=== PATIENT | female | born 1980 | race Caucasian/White ===

== ENCOUNTER 2017-03-04 17:57 | Inpatient (IN) | payer BC ==
[~2017-03-04] VITALS: Ht 165.1 cm; Wt 87.1 kg
[2017-03-04 18:36] LABS: HEMATOCRIT 40.7 % (36.0-46.0); MCHC 32.4 G/DL (30.0-36.0); MCV 89.5 FL (83-99); MEAN PLAT.VOLUME 10.3 uM^3 (9.5-12.4); PLATELET COUNT 340 K/uL (156-360); RBC DIS.WIDTH-SD 38.9 % (39-53); RED BLOOD COUNT 4.55 M/uL (3.80-5.20); WHITE BLOOD COUNT 14.2 K/uL (4.1-10.2)
[2017-03-04 18:44] LABS: CHLORIDE 104 mEq/L (99-109); POTASSIUM 3.8 mEq/L (3.7-5.4); SODIUM 140 mEq/L (136-147)
[2017-03-04 18:46] LABS: GLUCOSE 168 mg/dL (70-99)
[2017-03-04 18:47] LABS: ANION GAP 12 MEQ/L (2-14)
[2017-03-04 18:50] LABS: ADD MIUA? YES; BILIRUBIN NEGATIVE; BLOOD SMALL; COLOR YELLOW ((YELLOW)); GLUCOSE (STRIP) NEGATIVE; KETONES NEGATIVE; LEUKOCYTES MODERATE; NITRITE NEGATIVE; PROTEIN (STRIP) 30; SPECIFIC GRAVITY 1.013 (1.000-1.030); UROBILINOGEN 0.2 MG/DL (0.2-1.0)
[2017-03-04 18:50] LABS: GFR ESTIMATE (CALCULATED) 45 mL/min/
[2017-03-04 18:51] LABS: UREA NITROGEN (BUN) 16 mg/dL (9-23)
[2017-03-04] MEDS ORDERED: AMBIEN10 MG PO (18:53)
[2017-03-04] MEDS ORDERED: CIPRO500 MG PO (18:53)
[2017-03-04] MEDS ORDERED: AMITRIPTYLINE150 MG PO (18:53)
[2017-03-04] MEDS ORDERED: KLONOPIN1 MG PO (18:54)
[2017-03-04 18:55] LABS: BACTERIA NONE SEEN /HPF; EPITHELIAL CELLS 1+ /HPF; MUCUS TRACE /LPF; RED BLOOD CELLS 20-30 /HPF (0-5); UCUL ADDED? YES; WHITE BLOOD CELLS 40-50 /HPF (0-5)
[2017-03-04] MEDS ORDERED: OXYCODONE HCL20 M1 PO (18:55)
[2017-03-04 18:59] LABS: QUANTITATIVE HCG < 4.0 MIU/ML
[2017-03-04 23:32] VITALS: BP 134/82
[2017-03-05] VITALS (8 sets, daily range): BP systolic 84–106; BP diastolic 50–65
[2017-03-05 07:48] LABS: EOSINOPHIL (%) 0.5 % (0-5); EOSINOPHIL COUNT 0.1 K/uL (0-0.3); HEMATOCRIT 32.7 % (36.0-46.0); IMMATURE GRANULOCYTE (%) 0.3 % (0.0-0.7); INSTRUMENT ABS NEUTROPHIL CT 10.4 K/uL; LYMPHOCYTE COUNT 1.6 K/uL (1.0-2.8); MCH 29.8 PG (29.0-34.0); MCV 90.1 FL (83-99); MEAN PLAT.VOLUME 10.8 uM^3 (9.5-12.4); MONOCYTE COUNT 0.9 K/uL (0-0.8); NEUTROPHIL (%) 79.6 % (45-76); NEUTROPHIL COUNT 10.4 K/uL (1.8-6.4); PLATELET COUNT 290 K/uL (156-360); RBC DIS.WIDTH-CV 12.3 % (11.8-14.6); RBC DIS.WIDTH-SD 40.3 % (39-53); WHITE BLOOD COUNT 13.1 K/uL (4.1-10.2)
[2017-03-05 07:54] LABS: RED BLOOD COUNT 3.63 M/uL (3.80-5.20)
[2017-03-05 08:08] LABS: ANION GAP 9 MEQ/L (2-14); CHLORIDE 104 MEQ/L (99-109); GFR ESTIMATE (CALCULATED) 54 mL/min/; GLUCOSE 141 mg/dL (70-99); SAMPLE HEMOLYSIS CHECK 0; SAMPLE ICTERIC CHECK 0; SAMPLE LIPEMIA CHECK 0; SODIUM 139 MEQ/L (136-147); UREA NITROGEN (BUN) 14 mg/dL (9-23)
[2017-03-06 03:00] VITALS: BP 149/83
[2017-03-06 07:45] VITALS: BP 112/68
[2017-03-06 11:06] LABS: MCH 29.8 PG (29.0-34.0); MCHC 32.9 G/DL (30.0-36.0); MCV 90.6 FL (83-99); RBC DIS.WIDTH-CV 12.5 % (11.8-14.6); RBC DIS.WIDTH-SD 41.5 % (39-53); RED BLOOD COUNT 3.42 M/uL (3.80-5.20); WHITE BLOOD COUNT 5.1 K/uL (4.1-10.2)
[2017-03-06 11:26] LABS: ANION GAP 6 MEQ/L (2-14); CHLORIDE 108 MEQ/L (99-109); GFR ESTIMATE (CALCULATED) > 59 mL/min/; GLUCOSE 123 mg/dL (70-99); POTASSIUM 4.3 MEQ/L (3.7-5.4); SAMPLE HEMOLYSIS CHECK 0; SAMPLE ICTERIC CHECK 0; SAMPLE LIPEMIA CHECK 0; SODIUM 140 MEQ/L (136-147); UREA NITROGEN (BUN) 7 mg/dL (9-23)
[2017-03-06 11:33] VITALS: BP 135/71
[2017-03-06 11:41] LABS: PLAT.SUFFICIENCY ADEQUATE; PLATELET COUNT UNABLE TO REPORT K/uL (156-360)
[2017-03-06 16:09] VITALS: BP 114/75
[2017-03-06 20:24] VITALS: BP 128/88
[2017-03-06 23:38] VITALS: BP 125/83
[2017-03-07 04:14] VITALS: BP 125/78
[2017-03-07 07:20] LABS: HEMATOCRIT 31.8 % (36.0-46.0); MCH 28.7 PG (29.0-34.0); MCHC 32.1 G/DL (30.0-36.0); MCV 89.6 FL (83-99); MEAN PLAT.VOLUME 10.8 uM^3 (9.5-12.4); PLATELET COUNT 262 K/uL (156-360); RBC DIS.WIDTH-CV 12.1 % (11.8-14.6); RBC DIS.WIDTH-SD 39.6 % (39-53); RED BLOOD COUNT 3.55 M/uL (3.80-5.20); WHITE BLOOD COUNT 5.6 K/uL (4.1-10.2)
[2017-03-07 07:31] VITALS: BP 137/91
[2017-03-07 07:54] LABS: ANION GAP 8 MEQ/L (2-14); CHLORIDE 109 MEQ/L (99-109); GFR ESTIMATE (CALCULATED) > 59 mL/min/; GLUCOSE 120 mg/dL (70-99); POTASSIUM 4.1 MEQ/L (3.7-5.4); SAMPLE HEMOLYSIS CHECK 0; SAMPLE ICTERIC CHECK 0; SAMPLE LIPEMIA CHECK 0; SODIUM 142 MEQ/L (136-147); UREA NITROGEN (BUN) 6 mg/dL (9-23)
[2017-03-07] MEDS ORDERED: LEVAQUIN750 MG PO (09:19)
[2017-03-07] MEDS ORDERED: TAMSULOSIN HCL0.4 MG PO (09:19)
== END 2017-03-07 09:24 | disposition home or self-care (01) | DRG 872 ==
LOC: EME 17:57 → 2EASTP 21:21 → EDOF 21:21 → ENRESERV 21:23 → 2EASTP 23:17
PROVIDERS: Hospitalist; Internal Medicine
PROC: 0T778DZ Dilation of Left Ureter with Intraluminal Device, Via Natural or Artificial Opening Endoscopic (ICD-10-PCS; principal; 2017-03-05)
DX: A41.9 Sepsis, unspecified organism (principal); N13.6 Pyonephrosis; R00.0 Tachycardia, unspecified; F32.9 Major depressive disorder, single episode, unspecified; F41.9 Anxiety disorder, unspecified; Z87.440 Personal history of urinary (tract) infections; Z87.442 Personal history of urinary calculi
CPT/HCPCS: 74176; 80048; 81003; 84702; 85025; 85027; 87040; 87086; 99281; 99285; C1758; C1876; J0696; J1650; J1885; J1956; J2250; J2270; J2405; J3010; J7030; J7050